=== PATIENT | male | born 1990 | race African-American/Black ===

== ENCOUNTER 2020-09-21 19:26 | Emergency (ER) | payer OTHER, SELFPAY ==
--- NOTE | ~2020-09-21 | XR_ITS ---
XR tibia fibula LT 2V DATE: 09/21/2020 19:50 INDICATION: Leg injury. [place] a pop posteriorly. TECHNIQUE: AP and lateral views COMPARISON: None FINDINGS: No fracture, dislocation, periosteal reaction or bone destruction. IMPRESSION: Negative Reviewed, dictated and finalized at location A. IMPRESSION: Negative
--- NOTE | ~2020-09-21 | XR_ITS ---
XR ankle LT min 3V DATE: 09/21/2020 19:50 INDICATION: Leg injury. [place] a pop posteriorly. TECHNIQUE: 4 views of left ankle COMPARISON: None FINDINGS: No fracture or dislocation of the ankle or disruption of the ankle mortise. IMPRESSION: No fracture or dislocation Reviewed, dictated and finalized at location A. IMPRESSION: No fracture or dislocation
[2020-09-21 19:31] VITALS: BP 135/68; PULSE 68; RESP 16; TEMP 36.6; O2SAT 100
[2020-09-21 20:19] VITALS: BP 135/68; PULSE 68; RESP 16; TEMP 36.6; O2SAT 100
--- NOTE | 2020-09-21 21:16 | ED.LOWEXIN ---
HPI - Extremity Injury (Lower) General Chief Complaint: Extremity Injury, Lower Stated Complaint: bruised calf Time Seen by Provider: 09/21/20 20:21 Source: patient Mode of arrival: ambulatory Limitations: no limitations History of Present Illness HPI Narrative: 30-year-old male Basically healthy Here with a left calf injury Patient says that about a week ago he was playing basketball and went up in traffic for a rebound and then as he turned to run down the court he felt like somebody kicked him in the back of his calf and had immediate pain Since then he has been able to walk but it quite painful and his lower medial calf, but he has developed significantly more ecchymosis which is starting to settle down by his ankle and cause some swelling there as well This letter was worsened after he inadvertently slept in a neoprene calf sleeve Related Data Allergies Allergy/AdvReac Type Severity Reaction Status Date / Time No Known Allergies Allergy Unverified 04/26/17 22:07 Review of Systems Review of Systems: All systems reviewed & are unremarkable except as noted in HPI and below Constitutional: Constitutional: Reports no additional constitutional complaints, Denies chills, Denies fever(s) and Denies headache(s) ENT: Denies headache(s) Cardiovascular: Cardiovascular: Denies dyspnea Musculoskeletal: Musculoskeletal: Denies deformity, Reports arthralgias, Reports joint swelling and Denies numbness Integumentary/Breasts: Skin/Breast: Reports rash and Denies wounds Neurologic: Denies numbness PMFSH Social History Social History Alcohol intake: current Exam Const: General: cooperative, no acute distress and alert Orientation/consciousness: patient oriented x3 (alert) HENMT: Head: normal to inspection, normocephalic and atraumatic Neck: Neck: normal visual inspection, supple and no JVD Resp: Effort & Inspection: normal respiratory effort and not labored Auscultation: other (BS =) Skin: General skin exam: normal color and no rashes or lesions noted Neuro: General: patient oriented x3 (alert) and moves all extremities Speech: normal speech Extrem: Other: Or well localized tenderness in the medial calf, bruising, swelling, some ecchymosis is settled down by the ankle Pulses are normal He can plantarflex versus resistance but it is painful Lower part of Achilles tendon is palpably intact and nontender Psych: Affect: normal affect Course Vital Signs Vital signs: Vital Signs Temperature 36.6 C 09/21/20 19:31 Pulse Rate 68 09/21/20 19:31 Respiratory Rate 16 09/21/20 19:31 Blood Pressure 135/68 09/21/20 19:31 Pulse Oximetry 100 09/21/20 19:31 Temperature 36.6 C 09/21/20 20:19 Pulse Rate 68 09/21/20 20:19 Respiratory Rate 16 09/21/20 20:19 Blood Pressure 135/68 09/21/20 20:19 Pulse Oximetry 100 09/21/20 20:19 Discharge Plan Discharge Clinical Impression: Gastrocnemius muscle tear Patient Disposition: Home, Self-Care Condition: Stable Instructions: Muscle Strain (ED), Achilles Tendon Rupture (ED) Additional Instructions: Your strain is likely in the belly of the gastrocs muscle but is near the upper origin of the achilles tendon, be cautious with your return strenuous exercise Elevate as much as you can, ice, stretch gently, where a neoprene sleeve (but take it off at night) Follow-up/Referrals: Isaac,MD Nilesh [Primary Care Provider] - (7-10 days)
== END 2020-09-21 21:52 | disposition home or self-care (01) ==
PROVIDERS: Emergency Provider Emergency Medicine; PCP Family Medicine
DX: S86.812A Strain of other muscle(s) and tendon(s) at lower leg level, left leg, initial encounter (principal); Y93.67 Activity, basketball; X50.9XXA Other and unspecified overexertion or strenuous movements or postures, initial encounter
CPT/HCPCS: 73590; 73610; 99284